=== PATIENT | female | born 1945 | race Caucasian/White ===

== ENCOUNTER 2021-01-10 11:18 | Emergency (ER) | payer MEDICARE, OTHER ==
[~2021-01-10] VITALS: Ht 152.4 cm; Wt 45.0 kg
[2021-01-10] MEDS ORDERED: ALL DAY10 MG PO (13:42)
[2021-01-10] MEDS ORDERED: EPIPEN 2-P0.3 MG/0.3 IM (13:42)
[2021-01-10] MEDS ORDERED: PREDNISONE50 MG PO (13:42)
[2021-01-10 14:35] VITALS: BP 126/66
== END 2021-01-10 14:43 | disposition home or self-care (01) ==
LOC: ED 11:18
DX: T80.62XA Other serum reaction due to vaccination, initial encounter (principal); R06.02 Shortness of breath; T50.B95A Adverse effect of other viral vaccines, initial encounter